=== PATIENT | female | born 1990 | race African-American/Black ===

== ENCOUNTER 2017-04-05 09:19 | Emergency (ER) | payer SELFPAY ==
[2017-04-05 09:21] VITALS: BP 118/73; PULSE 80; RESP 15; TEMP 97.8; O2SAT 100
--- NOTE | 2017-04-05 10:20 | PD ---
HPI Chief Complaint: GI Complaint Time Seen by Provider: 10:04 Travel History International Travel<30 days: No Contact w/Intl Traveler<30days: No Traveled to known affect area: No History of Present Illness HPI 27yo F with no significant PMH presents to the ED with c/o right sided headache since 6am this morning. +Photophobia. +Nausea and NBNB vomiting. Pt also with nonbloody diarrhea. States she normally does not get headaches. Denies any fever, visual changes, chest pain, sob, abdominal pain, neck pain, focal weakness or numbness. PFSH Past Medical History Hx Anticoagulant Therapy: No Cardiovascular Problems: No Chemotherapy: No Cerebrovascular Accident: No Developmental Delay: No Diabetes: No Diminished Hearing: No Reproductive: Yes (DYSMENORRHEA) Respiratory: No Immunizations Current: Yes : 0 Para: 0 Miscarriage: 0 : 0 Social History Alcohol Use: Yes (2012) Tobacco Use: No Substance Use: No Allergies-Medications (Allergen,Severity, Reaction): Coded Allergies: No Known Allergies (Verified , 01/07/16) Reported Meds & Prescriptions Reported Meds & Active Scripts Active Tylenol (Acetaminophen) 325 Mg Tab 650 Mg PO Q6H PRN Review of Systems Except as stated in HPI: all other systems reviewed are Neg Physical Exam Narrative GENERAL: 27yo F in moderate distress. SKIN: Focused skin assessment warm/dry. HEAD: Atraumatic. Normocephalic. EYES: Pupils equal and round at 4mm. EOMI. No scleral icterus. No injection or drainage. ENT: No nasal bleeding or discharge. Mucous membranes pink and moist. NECK: No nuchal rigidity. CARDIOVASCULAR: Regular rate and rhythm. No murmur appreciated. RESPIRATORY: No accessory muscle use. Clear to auscultation. Breath sounds equal bilaterally. GASTROINTESTINAL: Abdomen soft, non-tender, nondistended. No rebound tenderness or guarding. MUSCULOSKELETAL: No obvious deformities. No clubbing. No cyanosis. No edema. NEUROLOGICAL: Awake and alert. No obvious cranial nerve deficits. Motor grossly within normal limits. Normal speech. PSYCHIATRIC: Appropriate mood and affect; insight and judgment normal. Data Data Last Documented VS Vital Signs Date Time Temp Pulse Resp B/P Pulse Ox O2 Delivery O2 Flow Rate FiO2 04/05/17 09:21 97.8 80 15 118/[address] Brain W/O Iv Contrast(Rout) (04/05/17 ) Ed Urine Pregnancytest Poc (04/05/17 10:15) Complete Blood Count With Diff (04/05/17 10:15) Basic Metabolic Panel (Bmp) (04/05/17 10:15) Urinalysis - C+S If Indicated (04/05/17 10:15) Ondansetron Inj (Zofran Inj) (04/05/17 10:30) Acetaminophen (Tylenol) (04/05/17 11:00) Labs Laboratory Tests Test 04/05/17 10:20 White Blood Count 13.9 TH/MM3 Red Blood Count 4.39 MIL/MM3 Hemoglobin 13.1 GM/DL Hematocrit 39.3 % Mean Corpuscular Volume 89.5 FL Mean Corpuscular Hemoglobin 29.8 PG Mean Corpuscular Hemoglobin 33.3 % Concent Red Cell Distribution Width 13.5 % Platelet Count 319 TH/MM3 Mean Platelet Volume 7.0 FL Neutrophils (%) (Auto) 87.2 % Lymphocytes (%) (Auto) 8.2 % Monocytes (%) (Auto) 4.2 % Eosinophils (%) (Auto) 0.2 % Basophils (%) (Auto) 0.2 % Neutrophils # (Auto) 12.1 TH/MM3 Lymphocytes # (Auto) 1.1 TH/MM3 Monocytes # (Auto) 0.6 TH/MM3 Eosinophils # (Auto) 0.0 TH/MM3 Basophils # (Auto) 0.0 TH/MM3 CBC Comment DIFF FINAL Differential Comment Urine Color YELLOW Urine Turbidity CLEAR Urine pH 6.0 Urine Specific [place] 1.030 Urine Protein TRACE mg/dL Urine Glucose (UA) NEG mg/dL Urine Ketones NEG mg/dL Urine Occult Blood NEG Urine Nitrite NEG Urine Bilirubin NEG Urine Urobilinogen LESS THAN 2.0 MG/DL Urine Leukocyte Esterase TRACE Urine RBC 1 /hpf Urine WBC 5 /hpf Urine Squamous Epithelial 3 /hpf Cells Urine Mucus FEW /lpf Microscopic Urinalysis Comment CULT NOT INDICATED Sodium Level 139 MEQ/L Potassium Level 4.1 MEQ/L Chloride Level 107 MEQ/L Carbon Dioxide Level 25.7 MEQ/L Anion Gap 6 MEQ/L Blood Urea Nitrogen 15 MG/DL Creatinine 0.74 MG/DL Estimat Glomerular Filtration 114 ML/MIN Rate Random Glucose 95 MG/DL Calcium Level 9.2 MG/DL [facility] Medical Decision Making Medical Screen Exam Complete: Yes Emergency Medical Condition: Yes Differential Diagnosis Viral syndrome vs. migraine headache vs. SAH (very unlikely) Narrative Course 27yo F with right sided headache that started at 6am today. Pt states she started vomiting after. She is very concern about a bleed since her friend recently from one and insisting she needs imaging. Since headache did start less than 6 hours ago, CT brain is 100% sensitive for SAH although I do not think she has SAH. CT brain showed no acute finding. Labs reviewed, mild leukocytosis at 13.9. BMP unremarkable. UA negative. Urine negative. Pt given zofran, acetaminophen with resolution of headache. Pt tolerating PO now. Pt has no abdominal pain. Return precautions given. Diagnosis Primary Impression: Viral syndrome Patient Instructions: General Instructions Departure Forms: Tests/Procedures Additional Instructions: Please follow up with your PMD in 3-7 days. Return to the ED if symptoms worsen. Med/Other Pt SpecificInfo: Prescription(s) given Scripts Acetaminophen (Tylenol)325 Mg [id number] Mg PO Q6H PRN (PAIN SCALE 1 TO 4) #20 TAB Ref 0 Prov:Chetna Larios DO 04/05/17 Disposition: 01 DISCHARGE HOME Condition: Stable Chetna Larios DO Apr 05, 2017 10:20 Chetna Larios DO Apr 05, 2017 10:20
[2017-04-05] MEDS ORDERED: ONDANSETRON HCL 4 MG/2 ML VIAL IV PUSH ONE (10:30)
[2017-04-05 10:51] LABS: AUTOMATED NEUTROPHIL # 12.1 TH/MM3 (1.8-7.7); BASOPHIL % 0.2 % (0.0-2.0); EOSINOPHIL % 0.2 % (0.0-4.0); HEMATOCRIT 39.3 % (35.0-46.0); HEMO FLAGS DIFF FINAL; LYMPH % 8.2 % (9.0-44.0); LYMPHOCYTE # 1.1 TH/MM3 (1.0-4.8); MEAN CELL VOLUME 89.5 FL (80.0-100.0); MEAN CORPUSCULAR HEMOGLOBIN 29.8 PG (27.0-34.0); MEAN CORPUSCULAR HGB CONC 33.3 % (32.0-36.0); MONO % 4.2 % (0.0-8.0); NEUT % 87.2 % (16.0-70.0); PLATELET COUNT 319 TH/MM3 (150-450); RED BLOOD COUNT 4.39 MIL/MM3 (4.00-5.30); RED CELL DISTRIBUTION WIDTH 13.5 % (11.6-17.2); WHITE BLOOD COUNT 13.9 TH/MM3 (4.0-11.0)
[2017-04-05] MEDS ORDERED: ACETAMINOPHEN 325 MG TAB PO ONE (11:00)
[2017-04-05 11:03] LABS: BLOOD, URINE NEG (NEG); COMMENT (UR) CULT NOT INDICATED; CULTURE IF INDICATED CULT NOT INDICATED; GLUCOSE,URINE NEG (NEG); KETONE, URINE NEG (NEG); MUCUS URINE FEW /lpf (OCC); NITRITE,URINE NEG (NEG); SQUAMOUS EPITHELIAL CELL URINE 3 /hpf (0-5); URINE COLOR YELLOW (YELLW/STRAW)
[2017-04-05 11:17] LABS: BICARBONATE 25.7 MEQ/L (21.0-32.0); POTASSIUM 4.1 MEQ/L (3.5-5.1)
--- NOTE | 2017-04-05 11:49 | RADRPT ---
EXAM DATE/TIME: 04/05/2017 11:23 [place] COMPARISON: No previous studies available for comparison. INDICATIONS : Headache with vomiting. RADIATION DOSE: 56.35 CTDIvol (mGy) MEDICAL HISTORY : None SURGICAL HISTORY : None. ENCOUNTER: Initial ACUITY: 1 day PAIN SCALE: 4/10 LOCATION: Bilateral cranial TECHNIQUE: Multiple contiguous axial images were obtained of the head. Using automated exposure control and adj ustment of the mA and/or kV according to patient size, radiation dose was kept as low as reasonably a chievable to obtain optimal diagnostic quality images. DICOM format image data is available electro nically for review and comparison. FINDINGS: CEREBRUM: The ventricles are normal. No evidence of midline shift, mass lesion, hemorrhage or acute infarction . No extra-axial fluid collections are seen. POSTERIOR FOSSA: The cerebellum and brainstem demonstrate no acute finding. The 4th ventricle is midline. The cerebe llopontine angle is unremarkable. EXTRACRANIAL: Visualized sinuses are clear. SKULL: The calvaria is intact. No evidence of skull fracture. CONCLUSION: Noncontrast head CT. No acute finding is identified. Cruz Mcpherson MD on April 05, 2017 at 11:46 Board Certified Radiologist. This report was verified electronically.
[2017-04-05] MEDS ORDERED: TYLE325T PO (12:26)
== END 2017-04-05 13:12 | disposition home or self-care (01) ==
LOC: NEPD 09:19
DX: B34.9 Viral infection, unspecified (principal)
CPT/HCPCS: 70450; 80048; 81001; 84703; 85025; 96374; 99285; J2405

== ENCOUNTER 2017-06-29 07:41 | Emergency (ER) | payer SELFPAY ==
[~2017-06-29] VITALS: Ht 167.6 cm; Wt 70.0 kg
[~2017-06-29 07:41] MED LIST: TYLE325T PO
[2017-06-29 07:42] VITALS: BP 124/70; PULSE 67; RESP 14; TEMP 99.2; O2SAT 100
--- NOTE | 2017-06-29 07:59 | PD ---
HPI Chief Complaint: ENT Complaint Time Seen by Provider: 07:50 Travel History International Travel<30 days: No Contact w/Intl Traveler<30days: No Traveled to known affect area: No History of Present Illness HPI 27-year-old Afro-[place] female presents Department with 4 days of worsening sore throat, upper respiratory congestion, sinus headache, postnasal drip, ear pain. Patient has low-grade temperature today. She has no nausea vomiting or heartburn. No cough no chest pain. Sore throat pain is 8 out of 10. She does have some productive yellowish sputum. Patient has no known drug allergies. PFSH Past Medical History Hx Anticoagulant Therapy: No Cardiovascular Problems: No Chemotherapy: No Cerebrovascular Accident: No Developmental Delay: No Diabetes: No Diminished Hearing: No Reproductive: Yes (DYSMENORRHEA) Respiratory: No Immunizations Current: Yes ?: Not LMP: 06/23/17 : 0 Para: 0 Miscarriage: 0 : 0 Social History Alcohol Use: Yes (2012) Tobacco Use: No Substance Use: No Allergies-Medications (Allergen,Severity, Reaction): Coded Allergies: No Known Allergies (Verified , 06/29/17) Reported Meds & Prescriptions Reported Meds & Active Scripts Active Flonase Nasal [place] (Fluticasone Nasal [place]) 50 Mcg/Act [place] 100 Mcg EACH NARE BID Amoxicillin 875 Mg Tab 875 Mg PO BID 10 Days Tylenol (Acetaminophen) 325 Mg Tab 650 Mg PO Q6H PRN Review of Systems Except as stated in HPI: all other systems reviewed are Neg General / Constitutional: No: Fever Eyes: No: Visual changes HENT: Positive: Headaches, Sore Throat, Rhinitis, Rhinorrhea, Congestion, Earache, No: Vertigo, Lightheadedness, Nosebleed, Neck Stiffness, Neck Pain, Masses, Gingival Bleeding, Dental Difficulties, Ear Discharge Cardiovascular: No: Chest Pain or Discomfort Respiratory: Positive: Cough, No: Shortness of Breath, Wheezing Gastrointestinal: No: Abdominal Pain Genitourinary: No: Dysuria Musculoskeletal: No: Pain Skin: No Rash Neurologic: No: Weakness Psychiatric: No: Depression Endocrine: No: Polydipsia Hematologic/Lymphatic: No: Easy Bruising Physical Exam Narrative GENERAL: Patient appears ill but not septic. SKIN: Warm and dry. Normal color. Normal turgor. No rash. HEAD: Atraumatic. Normocephalic. EYES: Pupils equal and round. No scleral icterus. No injection or drainage. ENT: No nasal bleeding or discharge. Mucous membranes pink and moist. TMs are dull bilaterally but no injection. Moderate sinus tenderness to both frontal and maxillary sinuses. Posterior pharynx is erythematous, cobblestoning, postnasal drip present. Voice is muffled. No significant tonsillar adenopathy. Uvula is midline. NECK: Trachea midline. Supple nontender without lymphadenopathy. CARDIOVASCULAR: Regular rate and rhythm. RESPIRATORY: No accessory muscle use. Clear to auscultation. Breath sounds equal bilaterally. GASTROINTESTINAL: Abdomen soft, non-tender, nondistended. Hepatic and splenic margins not palpable. MUSCULOSKELETAL: Extremities without clubbing, cyanosis, or edema. No obvious deformities. NEUROLOGICAL: Awake and alert. No obvious cranial nerve deficits. Motor grossly within normal limits. Five out of 5 muscle strength in the arms and legs. Normal speech. PSYCHIATRIC: Appropriate mood and affect; insight and judgment normal. Data Data Last Documented VS Vital Signs Date Time Temp Pulse Resp B/P (MAP) Pulse Ox O2 Delivery O2 Flow Rate FiO2 06/29/17 07:42 99.2 67 14 124/70 (88) 100 Orders Orders Ed Discharge Order (06/29/17 08:00) MDM Medical Decision Making Medical Screen Exam Complete: Yes Emergency Medical Condition: Yes Differential Diagnosis Upper respiratory infection. Sinusitis. Pharyngitis. Postnasal drip. Cough. Narrative Course Patient is treated with amoxicillin 875 twice a day 10 days. Patient is given Flonase 2 sprays each nostril daily. Work Note is given for today. Patient should follow local primary care physician or return if symptoms worsen. Diagnosis Primary Impression: Sinusitis, acute Qualified Codes: J01.40 - Acute pansinusitis, unspecified Additional Impression: Pharyngitis Qualified Codes: J02.9 - Acute pharyngitis, unspecified Referrals: [facility] Patient Instructions: General Instructions, Pharyngitis (ED), Sinusitis (ED) Departure Forms: Work Release Enter return to work date: Jun 30, 2017 Additional Instructions: Patient is treated with amoxicillin 875 twice a day 10 days. Patient is given Flonase 2 sprays each nostril daily. Work Note is given for today. Patient should follow local primary care physician or return if symptoms worsen. Med/Other Pt SpecificInfo: Prescription(s) given Scripts Fluticasone Nasal [place] (Flonase Nasal [place]) 50 Mcg/Act [place] 100 MCG EACH NARE BID for Allergies, #1 BOTTLE 0 Refills Prov: Octavio Short MD 06/29/17 Amoxicillin (Amoxicillin) 875 Mg Tab 875 MG PO BID for Infection for 10 Days, #20 TAB 0 Refills Prov: Octavio Short MD 06/29/17 Disposition: 01 DISCHARGE HOME Condition: Stable Jake Mijares Jun 29, 2017 07:59
--- NOTE | 2017-06-29 07:59 | PD ---
HPI Chief Complaint: ENT Complaint Time Seen by Provider: 07:50 Travel History International Travel<30 days: No Contact w/Intl Traveler<30days: No Traveled to known affect area: No History of Present Illness HPI 27-year-old Afro-[place] female presents Department with 4 days of worsening sore throat, upper respiratory congestion, sinus headache, postnasal drip, ear pain. Patient has low-grade temperature today. She has no nausea vomiting or heartburn. No cough no chest pain. Sore throat pain is 8 out of 10. She does have some productive yellowish sputum. Patient has no known drug allergies. PFSH Past Medical History Hx Anticoagulant Therapy: No Cardiovascular Problems: No Chemotherapy: No Cerebrovascular Accident: No Developmental Delay: No Diabetes: No Diminished Hearing: No Reproductive: Yes (DYSMENORRHEA) Respiratory: No Immunizations Current: Yes ?: Not LMP: 06/23/17 : 0 Para: 0 Miscarriage: 0 : 0 Social History Alcohol Use: Yes (2012) Tobacco Use: No Substance Use: No Allergies-Medications (Allergen,Severity, Reaction): Coded Allergies: No Known Allergies (Verified , 06/29/17) Reported Meds & Prescriptions Reported Meds & Active Scripts Active Flonase Nasal [place] (Fluticasone Nasal [place]) 50 Mcg/Act [place] 100 Mcg EACH NARE BID Amoxicillin 875 Mg Tab 875 Mg PO BID 10 Days Tylenol (Acetaminophen) 325 Mg Tab 650 Mg PO Q6H PRN Review of Systems Except as stated in HPI: all other systems reviewed are Neg General / Constitutional: No: Fever Eyes: No: Visual changes HENT: Positive: Headaches, Sore Throat, Rhinitis, Rhinorrhea, Congestion, Earache, No: Vertigo, Lightheadedness, Nosebleed, Neck Stiffness, Neck Pain, Masses, Gingival Bleeding, Dental Difficulties, Ear Discharge Cardiovascular: No: Chest Pain or Discomfort Respiratory: Positive: Cough, No: Shortness of Breath, Wheezing Gastrointestinal: No: Abdominal Pain Genitourinary: No: Dysuria Musculoskeletal: No: Pain Skin: No Rash Neurologic: No: Weakness Psychiatric: No: Depression Endocrine: No: Polydipsia Hematologic/Lymphatic: No: Easy Bruising Physical Exam Narrative GENERAL: Patient appears ill but not septic. SKIN: Warm and dry. Normal color. Normal turgor. No rash. HEAD: Atraumatic. Normocephalic. EYES: Pupils equal and round. No scleral icterus. No injection or drainage. ENT: No nasal bleeding or discharge. Mucous membranes pink and moist. TMs are dull bilaterally but no injection. Moderate sinus tenderness to both frontal and maxillary sinuses. Posterior pharynx is erythematous, cobblestoning, postnasal drip present. Voice is muffled. No significant tonsillar adenopathy. Uvula is midline. NECK: Trachea midline. Supple nontender without lymphadenopathy. CARDIOVASCULAR: Regular rate and rhythm. RESPIRATORY: No accessory muscle use. Clear to auscultation. Breath sounds equal bilaterally. GASTROINTESTINAL: Abdomen soft, non-tender, nondistended. Hepatic and splenic margins not palpable. MUSCULOSKELETAL: Extremities without clubbing, cyanosis, or edema. No obvious deformities. NEUROLOGICAL: Awake and alert. No obvious cranial nerve deficits. Motor grossly within normal limits. Five out of 5 muscle strength in the arms and legs. Normal speech. PSYCHIATRIC: Appropriate mood and affect; insight and judgment normal. Data Data Last Documented VS Vital Signs Date Time Temp Pulse Resp B/P (MAP) Pulse Ox O2 Delivery O2 Flow Rate FiO2 06/29/17 07:42 99.2 67 14 124/70 (88) 100 Orders Orders Ed Discharge Order (06/29/17 08:00) MDM Medical Decision Making Medical Screen Exam Complete: Yes Emergency Medical Condition: Yes Differential Diagnosis Upper respiratory infection. Sinusitis. Pharyngitis. Postnasal drip. Cough. Narrative Course Patient is treated with amoxicillin 875 twice a day 10 days. Patient is given Flonase 2 sprays each nostril daily. Work Note is given for today. Patient should follow local primary care physician or return if symptoms worsen. Diagnosis Primary Impression: Sinusitis, acute Qualified Codes: J01.40 - Acute pansinusitis, unspecified Additional Impression: Pharyngitis Qualified Codes: J02.9 - Acute pharyngitis, unspecified Referrals: [facility] Patient Instructions: General Instructions, Pharyngitis (ED), Sinusitis (ED) Departure Forms: Work Release Enter return to work date: Jun 30, 2017 Additional Instructions: Patient is treated with amoxicillin 875 twice a day 10 days. Patient is given Flonase 2 sprays each nostril daily. Work Note is given for today. Patient should follow local primary care physician or return if symptoms worsen. Med/Other Pt SpecificInfo: Prescription(s) given Scripts Fluticasone Nasal [place] (Flonase Nasal [place]) 50 Mcg/Act [place] 100 MCG EACH NARE BID for Allergies, #1 BOTTLE 0 Refills Prov: Octavio Short MD 06/29/17 Amoxicillin (Amoxicillin) 875 Mg Tab 875 MG PO BID for Infection for 10 Days, #20 TAB 0 Refills Prov: Octavio Short MD 06/29/17 Disposition: 01 DISCHARGE HOME Condition: Stable Jake Mijares Jun 29, 2017 07:59
[2017-06-29] MEDS ORDERED: AMOX875T PO ×2 (08:00)
[2017-06-29] MEDS ORDERED: FLUT1SPR5 EACH NARE ×2 (08:00)
== END 2017-06-29 08:13 | disposition home or self-care (01) ==
LOC: NEPD 07:41
DX: J01.40 Acute pansinusitis, unspecified (principal); J02.9 Acute pharyngitis, unspecified
CPT/HCPCS: 99284

== ENCOUNTER 2017-07-28 15:33 | Emergency (ER) | payer SELFPAY ==
[~2017-07-28] VITALS: Ht 167.6 cm; Wt 75.0 kg
[~2017-07-28 15:33] MED LIST changes: +AMOX875T PO; +FLUT1SPR5 EACH NARE
[2017-07-28 15:34] VITALS: BP 128/87; PULSE 99; RESP 16; TEMP 98.9; O2SAT 100
[2017-07-28] MEDS ORDERED: TRAM50 PO (16:39)
[2017-07-28] MEDS ORDERED: IBUP1TAB7 PO (16:39)
--- NOTE | 2017-07-28 16:40 | PD ---
HPI . Menstrual cramps Chief Complaint: Chief Investigator Problem/Complaint Time Seen by Provider: 16:03 Travel History International Travel<30 days: No Contact w/Intl Traveler<30days: No Traveled to known affect area: No History of Present Illness HPI This patient presents with a chief complaint of menstrual cramps. She reports a long-standing history of menstrual cramps. She is on control pills for menstrual cramps. She states she was unable to afford her pills this month. She reports the onset of menstrual cramps this morning. She states that she has taken Tylenol without relief. The nurse got the report that she had not taken anything prior to presentation. She rates her pain 10/10. PFSH Past Medical History Hx Anticoagulant Therapy: No Cardiovascular Problems: No Chemotherapy: No Cerebrovascular Accident: No Developmental Delay: No Diabetes: No Diminished Hearing: No Reproductive: Yes (DYSMENORRHEA) Respiratory: No Immunizations Current: Yes ?: Not LMP: 07/28/17 : 0 Para: 0 Miscarriage: 0 : 0 Social History Alcohol Use: No ( ) Tobacco Use: No Substance Use: No Allergies-Medications (Allergen,Severity, Reaction): Coded Allergies: No Known Allergies (Verified , 06/29/17) Reported Meds & Prescriptions Reported Meds & Active Scripts Active Flonase Nasal [place] (Fluticasone Nasal [place]) 50 Mcg/Act [place] 100 Mcg EACH NARE BID Amoxicillin 875 Mg Tab 875 Mg PO BID 10 Days Tylenol (Acetaminophen) 325 Mg Tab 650 Mg PO Q6H PRN Review of Systems Except as stated in HPI: all other systems reviewed are Neg General / Constitutional: No: Fever, Chills Genitourinary: Positive: Dysmenorrhea, Vaginal Bleeding, No: Urgency, Frequency , Dysuria Physical Exam Narrative GENERAL: Awake and alert and in no acute distress. SKIN: warm/dry. HEAD: Normocephalic. EYES: Pupils equal and round. No scleral icterus. No injection or drainage. ENT: No nasal bleeding or discharge. Mucous membranes pink and moist. NECK: Trachea midline. Full range of motion without pain.. CARDIOVASCULAR: Regular rate and rhythm. RESPIRATORY: No accessory muscle use. Clear to auscultation. Breath sounds equal bilaterally. GASTROINTESTINAL: Abdomen soft. Nontender. Bowel sounds present. Nondistended. MUSCULOSKELETAL: No obvious deformities. NEUROLOGICAL: Awake and alert. No obvious cranial nerve deficits. Motor grossly within normal limits. Normal speech. PSYCHIATRIC: Appropriate mood and affect; insight and judgment normal. Data Data Last Documented VS Vital Signs Date Time Temp Pulse Resp B/P (MAP) Pulse Ox O2 Delivery O2 Flow Rate FiO2 07/28/17 15:34 98.9 99 16 128/87 (101) 100 Orders Orders Ed Urine Pregnancytest Poc (07/28/17 16:05) Ketorolac Inj (Toradol Inj) (07/28/17 16:45) MDM Medical Decision Making Medical Screen Exam Complete: Yes Emergency Medical Condition: Yes Differential Diagnosis Differential diagnosis of pelvic pain includes but is not limited to UTI, PID, ectopic , spontaneous AB, constipation, viral illness Narrative Course This patient presents with a chief complaint of menstrual cramps. Her urine test is negative. I will give her a shot of Toradol and discharge her to home. Diagnosis Primary Impression: Dysmenorrhea Patient Instructions: Dysmenorrhea (DC), General Instructions Med/Other Pt SpecificInfo: Prescription(s) given Scripts Tramadol (Ultram) 50 Mg Tab 50 MG PO Q4H Y for PAIN, #12 TAB 0 Refills Prov: Gloria Amado MD 07/28/17 Ibuprofen (Ibuprofen) 800 Mg Tab 800 MG PO Q8H Y for Pain/Inflammation, #60 TAB 0 Refills Prov: Gloria Amado MD 07/28/17 Gloria Amado MD Jul 28, 2017 16:40
[2017-07-28] MEDS ORDERED: KETOROLAC TROMETHAMINE 60 MG/2 ML (IM) VIAL IM ONE (16:45)
== END 2017-07-28 16:59 | disposition home or self-care (01) ==
LOC: NEPD 15:33
DX: N94.6 Dysmenorrhea, unspecified (principal); Z79.899 Other long term (current) drug therapy
CPT/HCPCS: 84703; 96372; 99284; J1885

== ENCOUNTER 2017-08-20 02:58 | Emergency (ER) | payer SELFPAY ==
[~2017-08-20] VITALS: Ht 167.6 cm; Wt 72.7 kg
[~2017-08-20 02:58] MED LIST changes: +IBUP1TAB7 PO; +TRAM50 PO
[2017-08-20 03:00] VITALS: BP 122/84; PULSE 91; RESP 16; TEMP 98.9; O2SAT 99
[2017-08-20 03:27] VITALS: BP 113/69; PULSE 91; RESP 16; O2SAT 97
[2017-08-20 03:29] VITALS: O2SAT 99
[2017-08-20] MEDS ORDERED: SODIUM CHLORIDE 0.9% FLUSH 10 ML FLUSH IVF PRN (03:30)
[2017-08-20] MEDS ORDERED: SODIUM CHLOR 0.9% 1000 ML INJ 1,000 ML IV ONE (03:38)
--- NOTE | 2017-08-20 03:38 | PD ---
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 ALSO STATED THAT SHE HAS HAD SOME ALCOHOL TO DRINK TODAY. C/O RIGHT SIDED SHARP PAIN , NON RADIATING, WORSE WITH DEEP BREATHING AND MOVING HER ARM...NO ALLEVIATING FACTORS...DENIES ANY ASSOC FACTORS OF FEVER/COUGH/SOB/N/V/D/ABDPAIN/BACK PAIN/ RUNNY NOSE PFSH Past Medical History Medical History: Denies Significant Hx Hx Anticoagulant Therapy: No Cardiovascular Problems: No Chemotherapy: No Cerebrovascular Accident: No Developmental Delay: No Diabetes: No Diminished Hearing: No Reproductive: Yes (DYSMENORRHEA) Respiratory: No Immunizations Current: Yes Tetanus Vaccination: < 5 Years Influenza Vaccination: No ?: Not LMP: 07/24/2017 : 0 Para: 0 Miscarriage: 0 : 0 Past Surgical History Surgical History: No Previous Surgery Social History Alcohol Use: Yes (RARELY; STATES SHE GOT DRUNK TONIGHT ) Tobacco Use: Yes Substance Use: No Allergies-Medications (Allergen,Severity, Reaction): Coded Allergies: No Known Allergies (Verified , 06/29/17) Reported Meds & Prescriptions Reported Meds & Active Scripts Active No Active Prescriptions or Reported Medications Review of Systems Except as stated in HPI: all other systems reviewed are Neg General / Constitutional: No: Fever Eyes: No: Visual changes HENT: No: Headaches Cardiovascular: Positive: Chest Pain or Discomfort Respiratory: No: Shortness of Breath Gastrointestinal: No: Abdominal Pain Genitourinary: No: Dysuria Musculoskeletal: No: Pain Skin: No Rash Neurologic: No: Weakness Psychiatric: No: Depression Endocrine: No: Polydipsia Hematologic/Lymphatic: No: Easy Bruising Physical Exam Narrative GENERAL: SKIN: Warm and dry. HEAD: Atraumatic. Normocephalic. EYES: Pupils equal and round. No scleral icterus. No injection or drainage. ENT: No nasal bleeding or discharge. Mucous membranes pink and moist. NECK: Trachea midline. No JVD. CARDIOVASCULAR: Regular rate and rhythm. RESPIRATORY: No accessory muscle use. Clear to auscultation. Breath sounds equal bilaterally. GASTROINTESTINAL: Abdomen soft, non-tender, nondistended. MUSCULOSKELETAL: Extremities without clubbing, cyanosis, or edema. No obvious deformities. HOWEVER, REPRODUCIBLE RIGHT PECTORALIS TTP NEUROLOGICAL: Awake and alert. No obvious cranial nerve deficits. Motor grossly within normal limits. Five out of 5 muscle strength in the arms and legs. Normal speech. PSYCHIATRIC: Appropriate mood and affect; insight and judgment normal. Data Data Last Documented VS Vital Signs Date Time Temp Pulse Resp B/P (MAP) Pulse Ox O2 Delivery O2 Flow Rate FiO2 08/20/17 03:29 99 Room Air 08/20/17 03:27 91 16 08/20/17 03:00 98.9 Orders Orders Electrocardiogram (08/20/17 03:26) Ckmb (Isoenzyme) Profile (08/20/17 03:26) Complete Blood Count With Diff (08/20/17 03:26) Comprehensive Metabolic Panel (08/20/17 03:26) D-Dimer (08/20/17 03:26) Prothrombin Time / Inr (Pt) (08/20/17 03:26) Act Partial Throm Time (Ptt) (08/20/17 03:26) Troponin I (08/20/17 03:26) Lipase (08/20/17 03:26) Chest, Single Ap (08/20/17 03:26) Ecg Monitoring (08/20/17 03:26) Iv Access Insert/Monitor (08/20/17 03:26) Oximetry (08/20/17 03:26) Sodium Chloride 0.9% Flush (Ns Flush) (08/20/17 03:30) Urinalysis - C+S If Indicated (08/20/17 03:26) Ed Urine Pregnancytest Poc (08/20/17 03:26) Drug Screen, Random Urine (08/20/17 03:26) Ketorolac Inj (Toradol Inj) (08/20/17 03:45) Sodium Chlor 0.9% 1000 Ml Inj (Ns 1000 M (08/20/17 03:38) Creatine Kinase (Cpk) (08/20/17 03:38) CKMB (08/20/17 03:22) CKMB% (08/20/17 03:22) Labs Laboratory Tests Test 08/20/17 03:22 08/20/17 04:25 White Blood Count 13.3 TH/MM3 Red Blood Count 4.07 MIL/MM3 Hemoglobin 12.2 GM/DL Hematocrit 35.8 % Mean Corpuscular Volume 87.9 FL Mean Corpuscular Hemoglobin 30.1 PG Mean Corpuscular Hemoglobin Concent 34.2 % Red Cell Distribution Width 14.1 % Platelet Count 275 TH/MM3 Mean Platelet Volume 7.1 FL Neutrophils (%) (Auto) 67.0 % Lymphocytes (%) (Auto) 23.2 % Monocytes (%) (Auto) 9.4 % Eosinophils (%) (Auto) 0.2 % Basophils (%) (Auto) 0.2 % Neutrophils # (Auto) 8.9 TH/MM3 Lymphocytes # (Auto) 3.1 TH/MM3 Monocytes # (Auto) 1.3 TH/MM3 Eosinophils # (Auto) 0.0 TH/MM3 Basophils # (Auto) 0.0 TH/MM3 CBC Comment DIFF FINAL Differential Comment Prothrombin Time 10.5 SEC Prothromb Time International Ratio 1.0 RATIO Activated Partial Thromboplast Time 27.1 SEC D-Dimer Quantitative (PE/DVT) 0.31 MG/L FEU Blood Urea Nitrogen 20 MG/DL Creatinine 0.71 MG/DL Random Glucose 84 MG/DL Total Protein 8.3 GM/DL Albumin 4.8 GM/DL Calcium Level 8.8 MG/DL Alkaline Phosphatase 37 U/L Aspartate Amino Transf (AST/SGOT) 13 U/L Alanine Aminotransferase (ALT/SGPT) 21 U/L Total Bilirubin 0.3 MG/DL Sodium Level 138 MEQ/L Potassium Level 3.6 MEQ/L Chloride Level 106 MEQ/L Carbon Dioxide Level 24.1 MEQ/L Anion Gap 8 MEQ/L Estimat Glomerular Filtration Rate 119 ML/MIN Total Creatine Kinase 349 U/L Creatine Kinase MB 2.5 NG/ML Creatine Kinase MB % 0.7 % Troponin I LESS THAN 0.02 NG/ML Lipase 175 U/L Urine Opiates Screen NEG Urine Barbiturates Screen NEG Urine Amphetamines Screen NEG Urine Benzodiazepines Screen NEG Urine Cocaine Screen NEG Urine Cannabinoids Screen POS MDM Medical Decision Making Medical Screen Exam Complete: Yes Emergency Medical Condition: Yes Medical Record Reviewed: Yes Interpretation(s) EKG: NSR 82, WITH Q WAVES ON I/AVL, J POINT ELEV ON V5/V6...NO STEMI PATTERN NOTED ON ANATOMICAL LEADS...C/W JAN 24 2014 EKG WHICH HAD MANY OF THE ABNORMAL FINDINGS TODAY Differential Diagnosis CHEST WALL PAIN V ATYPICAL NONSTEMI V STEMI V PE V PTX V PNA Narrative Course NEG TROPONIN, CHEST XRAY NEG PULM EDEMA/PTX/PNA....COMPLETELY REPRODUCIBLE CHEST WAL PAIN WITHOUT Diagnosis Primary Impression: Chest wall pain Patient Instructions: Chest Wall Pain (GEN), General Instructions Scripts Tramadol (Ultram) 50 Mg Tab 50 MG PO Q4H Y for PAIN, #10 TAB 0 Refills Prov: Sourav Sanchez MD 08/20/17 Disposition: 01 DISCHARGE HOME Condition: Stable Sourav Sanchez MD Aug 20, 2017 03:38
[2017-08-20] MEDS ORDERED: KETOROLAC TROMETHAMINE 30 MG/ML (IVP) VIAL IV PUSH ONE (03:45)
[2017-08-20 03:54] LABS: AUTOMATED NEUTROPHIL # 8.9 TH/MM3 (1.8-7.7); BASOPHIL % 0.2 % (0.0-2.0); EOSINOPHIL % 0.2 % (0.0-4.0); HEMATOCRIT 35.8 % (35.0-46.0); HEMOGLOBIN 12.2 GM/DL (11.6-15.3); LYMPH % 23.2 % (9.0-44.0); LYMPHOCYTE # 3.1 TH/MM3 (1.0-4.8); MEAN CELL VOLUME 87.9 FL (80.0-100.0); MEAN CORPUSCULAR HEMOGLOBIN 30.1 PG (27.0-34.0); MEAN CORPUSCULAR HGB CONC 34.2 % (32.0-36.0); MEAN PLATELET VOLUME 7.1 FL (7.0-11.0); MONO % 9.4 % (0.0-8.0); MONOCYTE # 1.3 TH/MM3 (0-0.9); PLATELET COUNT 275 TH/MM3 (150-450); RED BLOOD COUNT 4.07 MIL/MM3 (4.00-5.30); RED CELL DISTRIBUTION WIDTH 14.1 % (11.6-17.2); WHITE BLOOD COUNT 13.3 TH/MM3 (4.0-11.0)
--- NOTE | 2017-08-20 04:13 | RADRPT ---
EXAM DATE/TIME: 08/20/2017 03:39 [facility] COMPARISON: No previous studies available for comparison. INDICATIONS : Chest pain. MEDICAL HISTORY : None. SURGICAL HISTORY : None. ENCOUNTER: Initial ACUITY: 1 day PAIN SCORE: 10/10 LOCATION: Right chest FINDINGS: A single view of the chest demonstrates the lungs to be symmetrically aerated without evidence of mas s, infiltrate or effusion. The cardiomediastinal contours are unremarkable. Osseous structures are intact. CONCLUSION: No evidence of acute cardiopulmonary disease. Cruz Phillips MD on August 20, 2017 at 4:11 Board Certified Radiologist. This report was verified electronically.
[2017-08-20 04:15] LABS: ALBUMIN 4.8 GM/DL (3.4-5.0); ALT (GPT) 21 U/L (10-53); AST (GOT) 13 U/L (15-37); BICARBONATE 24.1 MEQ/L (21.0-32.0); BLOOD UREA NITROGEN 20 MG/DL (7-18); CALCIUM 8.8 MG/DL (8.5-10.1); CHLORIDE 106 MEQ/L (98-107); CREATININE 0.71 MG/DL (0.50-1.00); GLOMERULAR FILTRATION RATE 119 ML/MIN (>89); GLUCOSE,RANDOM 84 MG/DL (74-106); LIPASE 175 U/L (73-393); SODIUM (NA) 138 MEQ/L (136-145)
[2017-08-20 04:19] LABS: ALKALINE PHOSPHATASE 37 U/L (45-117); TOTAL BILIRUBIN ADULT 0.3 MG/DL (0.2-1.0); TOTAL PROTEIN 8.3 GM/DL (6.4-8.2); TROPONIN I LESS THAN 0.02 NG/ML (0.02-0.05)
[2017-08-20 04:40] LABS: PROTHROMBIN TIME - PATIENT 10.5 SEC (9.8-11.6)
[2017-08-20 04:49] LABS: D-DIMER 0.31 MG/L FEU (0.00-0.50)
[2017-08-20] MEDS ORDERED: TRAM50 PO (05:12)
[2017-08-20 10:13] LABS: BACTERIA, URINE RARE /hpf; BILIRUBIN, URINE NEG (NEG); BLOOD, URINE NEG (NEG); GLUCOSE,URINE NEG (NEG); KETONE, URINE 150 mg/dL (NEG); MUCUS URINE FEW /lpf (OCC); NITRITE,URINE NEG (NEG); SQUAMOUS EPITHELIAL CELL URINE 12 /hpf (0-5); URINE COLOR YELLOW (YELLW/STRAW); URINE LEUKOCYTE ESTERASE MOD (NEG)
--- NOTE | 2017-08-20 10:35 | EKG ---
Date Performed: 08/20/2017 Time Performed: 03:19:22 PTAGE: 27 years EKG: Sinus rhythm LATERAL MYOCARDIAL INFARCTION, ARM LEAD REVERSAL, NONSPECIFIC ANTEROLATERAL ST ABNORMALITY, CONSIDER EARLY REPOLARIZATION PREVIOUS TRACING : 01/24/2014 18.58 Compared to previous tracing, arm lead reversal is no w evident. DOCTOR: Dorian Hale Interpretating Date/Time 08/20/2017 10:34:46
== END 2017-08-20 05:27 | disposition home or self-care (01) ==
LOC: NEPC 02:58
DX: R07.89 Other chest pain (principal); R94.31 Abnormal electrocardiogram [ECG] [EKG]; I25.2 Old myocardial infarction; Z72.0 Tobacco use
CPT/HCPCS: 71010; 80053; 80307; 81001; 82550; 82552; 83690; 84484; 84703; 85025; 85379; 85610; 85730; 93005; 96361; 96374; 99285; J1885; J7030

== ENCOUNTER 2018-01-29 10:12 | Emergency (ER) | payer SELFPAY ==
[~2018-01-29] VITALS: Ht 170.2 cm; Wt 60.0 kg
[~2018-01-29 10:12] MED LIST changes: -AMOX875T PO; -FLUT1SPR5 EACH NARE; -IBUP1TAB7 PO; -TYLE325T PO
[2018-01-29 10:20] VITALS: BP 111/65; PULSE 83; RESP 16; TEMP 97.6; O2SAT 100
== END 2018-01-29 10:45 | disposition left against medical advice (07) ==
LOC: NETRI 10:12
DX: N94.6 Dysmenorrhea, unspecified (principal); Z53.21 Procedure and treatment not carried out due to patient leaving prior to being seen by health care provider
CPT/HCPCS: 99281